=== PATIENT | male | born 1985 | race Hispanic/Latino ===

== ENCOUNTER 2019-06-20 16:04 | Emergency (ER) | payer SELFPAY ==
[2019-06-20 17:01] VITALS: BP 161/92
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
--- NOTE | 2019-06-20 17:54 | XRay Report ---
LUMBAR SPINE 3 VIEWS INDICATION: pain radiating down right leg, no injury. COMPARISON: No relevant prior imaging study available. FINDINGS: Lumbar vertebral body height and disc space height is maintained. Alignment is normal. No fracture is seen. No significant degenerative changes. IMPRESSION: 1. No acute findings. Signer Name: Jono Jimenez MD Signed: 06/20/2019 5:50 PM Workstation Name: [id number]
--- NOTE | 2019-06-20 22:37 | Emergency Department Report ---
ED Back Pain/Injury HPI - General Chief Complaint: Back Pain/Injury Stated Complaint: BACK PAIN/SINUS ISSUE Time Seen by Provider: 06/20/19 17:00 Source: patient Limitations: No Limitations - History of Present Illness MD Complaint: back pain, back injury -: Gradual Similar Symptoms Previously: No Place: home Severity: mild Quality: dull Consistency: constant Worsens With: none Associated Symptoms: denies: weakness, chest pain, numbness, difficulty walking, incontinence, fever/chills, constipation, abdominal pain, rash, seizure, shortness of breath - Related Data Previous Rx's Medication Instructions Recorded Last Taken Type cephALEXin [Keflex] 500 mg PO Q12HR #20 cap 02/11/16 Unknown Rx traMADol [Ultram] 50 mg PO Q6HR PRN #12 tablet 02/11/16 Unknown Rx Cyclobenzaprine [Flexeril] 10 mg PO QHS PRN #10 tablet 07/19/18 Unknown Rx Ibuprofen [Motrin] 600 mg PO Q8H PRN #20 tablet 07/19/18 Unknown Rx methOCARBAMOL [Robaxin] 750 mg PO Q8H PRN #21 tablet 06/20/19 Unknown Rx predniSONE [Deltasone] 50 mg PO QDAY #5 tab 06/20/19 Unknown Rx traMADol [Ultram] 50 mg PO Q6HR PRN #20 tablet 06/20/19 Unknown Rx Allergies Allergy/AdvReac Type Severity Reaction Status Date / Time No Known Allergies Allergy Unverified 07/19/18 19:30 ED Review of Systems ROS: Stated complaint: BACK PAIN/SINUS ISSUE Other details as noted in HPI Comment: All other systems reviewed and negative ED Past Medical Hx - Past Medical History Previous Medical History?: Yes Hx Hypertension: Yes - Surgical History Past Surgical History?: No - Social History Smoking Status: Current Every Day Smoker Substance Use Type: Alcohol - Medications Home Medications: Home Medications Medication Instructions Recorded Confirmed Last Taken Type cephALEXin [Keflex] 500 mg PO Q12HR #20 cap 02/11/16 Unknown Rx traMADol [Ultram] 50 mg PO Q6HR PRN #12 tablet 02/11/16 Unknown Rx Cyclobenzaprine [Flexeril] 10 mg PO QHS PRN #10 tablet 07/19/18 Unknown Rx Ibuprofen [Motrin] 600 mg PO Q8H PRN #20 tablet 07/19/18 Unknown Rx methOCARBAMOL [Robaxin] 750 mg PO Q8H PRN #21 tablet 06/20/19 Unknown Rx predniSONE [Deltasone] 50 mg PO QDAY #5 tab 06/20/19 Unknown Rx traMADol [Ultram] 50 mg PO Q6HR PRN #20 tablet 06/20/19 Unknown Rx ED Physical Exam - General Limitations: No Limitations General appearance: alert, in no apparent distress - Head Head exam: Present: atraumatic, normocephalic - Eye Eye exam: Present: normal appearance - ENT ENT exam: Present: normal exam, normal orophraynx, mucous membranes moist, TM's normal bilaterally - Neck Neck exam: Present: normal inspection - Respiratory Respiratory exam: Present: normal lung sounds bilaterally. Absent: respiratory distress, wheezes, rales - Cardiovascular Cardiovascular Exam: Present: regular rate, normal rhythm. Absent: systolic murmur, diastolic murmur, rubs, gallop - GI/Abdominal GI/Abdominal exam: Present: soft, normal bowel sounds - Rectal Rectal exam: Present: deferred - Extremities Exam Extremities exam: Present: normal inspection - Back Exam Back exam: Present: normal inspection, muscle spasm, paraspinal tenderness, vertebral tenderness, other (pain with seated SLR) - Neurological Exam Neurological exam: Present: alert, oriented X3, CN II-XII intact, normal gait - Psychiatric Psychiatric exam: Present: normal affect, normal mood - Skin Skin exam: Present: warm, dry, intact, normal color. Absent: rash ED Course Vital Signs 06/20/19 17:00 Temperature 98.3 F Pulse Rate 67 Respiratory 18 Rate Blood Pressure 161/92 O2 Sat by Pulse 100 Oximetry ED Medical Decision Making - Radiology Data Radiology results: report reviewed [facility] [address] [place] [address] XRay Report Signed Patient: OSCAR CORRALES MR#: [id number] : 1985 Acct:[id number] Age/Sex: 33 / M ADM Date: 06/20/19 Loc: ED Attending Dr: Ordering Physician: HARINDER KIM Date of Service: 06/20/19 Procedure(s): XR spine lumbosacral 2-3V Accession Number(s): [id number] cc: HARINDER KIM Fluoro Time In Minutes: LUMBAR SPINE 3 VIEWS INDICATION: pain radiating down right leg, no injury. COMPARISON: No relevant prior imaging study available. FINDINGS: Lumbar vertebral body height and disc space height is maintained. Alignment is normal. No fracture is seen. No significant degenerative changes. IMPRESSION: 1. No acute findings. Signer Name: Jono Jimenez MD Signed: 06/20/2019 5:50 PM Workstation Name: [id number] Transcribed By: SW Dictated By: Jono Jimenez MD Electronically Authenticated By: Jono Jimenez MD Signed Date/Time: 06/20/19 3080 Critical care attestation.: If time is entered above; I have spent that time in minutes in the direct care of this critically ill patient, excluding procedure time. ED Disposition Clinical Impression: Lumbago with sciatica, right side Disposition: - TO HOME OR SELFCARE Is pt being admited?: No Does the pt Need Aspirin: No Condition: Stable Instructions: Lumbar Radiculopathy (ED), Arthralgia (ED) Referrals: PRIMARY MD DANIKA [Primary Care Provider] - 3-5 Days AAMIR FRANKLIN MD [Staff Physician] - 3-5 Days
== END 2019-06-20 22:45 | disposition home or self-care (01) ==
LOC: ED 16:04
DX: M54.41 Lumbago with sciatica, right side (principal); I10 Essential (primary) hypertension; F17.200 Nicotine dependence, unspecified, uncomplicated; Z79.899 Other long term (current) drug therapy
CPT/HCPCS: 72100